=== PATIENT | female | born 1995 | race American Indian/Alaskan Native ===

== ENCOUNTER 2020-10-16 00:53 | Emergency (ER) | payer SELFPAY ==
[2020-10-16 01:35] VITALS: BP 115/70
--- NOTE | 2020-10-16 01:41 | Emergency Department Report ---
ED Anxiety HPI - General Chief Complaint: Anxiety Stated Complaint: ETOH Time Seen by Provider: 10/16/20 01:10 Source: EMS Mode of arrival: Stretcher Limitations: No Limitations - History of Present Illness Initial Comments: Patient is a 25-year-old female who presents emergency room with anxiety. Patient states that she was out having some drinks with some friends at a lounge and became anxious. Patient states she had 3 or 4 drinks starting at 7 PM. Patient states she was scared is why she called the ambulance. Patient states that since leaving the lounge her anxiety has resolved. Patient states she does not want to be evaluated further. Patient denies chest pain shortness of breath. Patient states she called EMS because she does not know what was going on. Patient answering questions appropriately. Patient is alert and oriented x4. Patient denies recent travel. Patient denies recent international travel. Patient denies exposure to the novel coronavirus. Patient denies sick contacts. Patient denies fever and chills. Patient denies cough. Patient denies diarrhea. Patient denies coming in contact with anybody with symptoms of the novel coronavirus. Complaint: anxiety - Related Data Allergies/Adverse Reactions: Allergies Allergy/AdvReac Type Severity Reaction Status Date / Time No Known Allergies Allergy Unverified 10/16/20 01:14 ED Review of Systems ROS: Stated complaint: ETOH Other details as noted in HPI Constitutional: denies: chills, fever Eyes: denies: eye pain, eye discharge, vision change ENT: denies: ear pain, throat pain Respiratory: denies: cough, shortness of breath, wheezing Cardiovascular: denies: chest pain, palpitations Endocrine: no symptoms reported Gastrointestinal: denies: abdominal pain, nausea, diarrhea Genitourinary: denies: urgency, dysuria, discharge Musculoskeletal: denies: back pain, joint swelling, arthralgia Skin: denies: rash, lesions Neurological: denies: headache, weakness, paresthesias Psychiatric: as per HPI, anxiety. denies: depression Hematological/Lymphatic: denies: easy bleeding, easy bruising ED Past Medical Hx - Past Medical History Previous Medical History?: No - Surgical History Past Surgical History?: No - Family History Family history: no significant - Social History Smoking Status: Never Smoker Substance Use Type: Alcohol ED Physical Exam - General Limitations: Altered Mental Status General appearance: alert, in no apparent distress - Head Head exam: Present: atraumatic, normocephalic - Eye Eye exam: Present: normal appearance - ENT ENT exam: Present: mucous membranes moist - Neck Neck exam: Present: normal inspection - Respiratory Respiratory exam: Present: normal lung sounds bilaterally. Absent: respiratory distress - Cardiovascular Cardiovascular Exam: Present: regular rate, normal rhythm. Absent: systolic murmur, diastolic murmur, rubs, gallop - GI/Abdominal GI/Abdominal exam: Present: soft, normal bowel sounds - Extremities Exam Extremities exam: Present: normal inspection - Back Exam Back exam: Present: normal inspection - Neurological Exam Neurological exam: Present: alert, oriented X3, CN II-XII intact, normal gait. Absent: abnormal gait, motor sensory deficit - Psychiatric Psychiatric exam: Present: normal affect, normal mood - Skin Skin exam: Present: warm, dry, intact, normal color. Absent: rash ED Course Vital Signs 10/16/20 01:21 Temperature 97.9 F Pulse Rate 101 H Respiratory 16 Rate Blood Pressure 115/70 O2 Sat by Pulse 100 Oximetry - Reevaluation(s) Reevaluation #1: Initial evaluation was done. Patient is of sound mind and body. Patient states that she feels better and does not want any further evaluation. I discussed the risk of leaving the hospital AGAINST MEDICAL ADVICE. Patient voiced understanding of the risk. Patient states she does not want to have her blood drawn or any testing done. Patient signed AMA form. The form signed and was witnessed by the nurse. Even though the patient is leaving AGAINST MEDICAL ADVICE a formal discharge will be given to the patient for follow-up instructions. I discussed all clinical findings with patient. Patient given discharge instructions. Patient voiced understanding of discharge instructions. 10/16/20 01:42 ED Medical Decision Making - Medical Decision Making Patient is a 25-year-old female who presents emergency room for anxiety attack. Patient was have alcoholic drinks and she became nervous. Patient called EMS patient unsure what is going on. Patient states that prior to arrival her symptoms resolved. Patient does not have any clinical indications that she is intoxicated. Patient is of sound mind and body. Patient states that she does not want to have any further evaluation. Patient signed AMA form. Patient given discharge instructions. Patient left the hospital AGAINST MEDICAL ADVICE. - Differential Diagnosis Anxiety, alcohol, Critical care attestation.: If time is entered above; I have spent that time in minutes in the direct care of this critically ill patient, excluding procedure time. ED Disposition Clinical Impression: Anxiety Disposition: DC-07 LEFT AGAINST MED ADVICE Is pt being admited?: No Does the pt Need Aspirin: No Condition: Stable Instructions: Managing Anxiety, Adult Additional Instructions: Patient to follow-up with primary care in 2 to 3 days. Patient to avoid alcoh ol. Patient to rest. Patient to increase water. Patient to take Tylenol or ibuprofen as needed for pain. Patient to take meds as directed. Patient to return to the ER if condition worsens, changes or new symptoms arise. Referrals: ELIANE BASURTO MD [Staff Physician] - 2-3 Days Forms: AMA Form Time of Disposition: 01:44
== END 2020-10-16 02:19 | disposition left against medical advice (07) ==
LOC: ED 00:53
DX: F41.9 Anxiety disorder, unspecified (principal)
CPT/HCPCS: 99283